=== PATIENT | male | born 1955 ===

== ENCOUNTER 2022-08-08 10:38 | Outpatient (CLI) | payer OTHER, SELFPAY ==
--- NOTE | 2022-08-08 11:30 | NEURO_ITS ---
Impression: # Complains of right hand weakness. 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 # No Carpal Tunnel Syndrome. # Abnormal needle/EMG exam in the muscles of ulnar nerve distribution. Motor Nerve Conduction Upper Extremities Median Nerve Conduction Velocity (m/sec) Terminal Latency (msec) Response Voltage(mV) Elbow-Wrist Wrist Elbow Wrist Right 50 2.7 4 6 Left 57 3.2 5 7 Ulnar Nerve Conduction Velocity (m/sec) Terminal Latency (msec) Response Voltage(mV) Above Elbow Below Elbow Wrist Above Elbow Below Elbow Wrist Right 25 52 3.0 2 3 3 Left 54 2.3 5 7 F-Wave Latency Median (ms) Ulnar (ms) Right 27.6 29.3 Left 28.3 29.8 Sensory Nerve Conduction Upper Extremities Median Nerve Stimulation Terminal Latency (msec) Wrist/Digit Response Voltage (uV) Wrist Right 2.8/2.7 50/23 Left 2.8/2.9 46/45 Ulnar Nerve Stimulation Terminal Latency (msec) Wrist/Digit Response Voltage (uV) Wrist Right NR NR Left 2.6 18 Radial Nerve Terminal Latency (msec) Response Voltage(mV) Right 2.9 5 Left 2.3 24 Left Right Muscles Examined Fibrillation Fasciculation Scarcity Voltage Duration Left Right Left Right Left Right Left Right Left Right Deltoid Biceps X X Brachioradialis Triceps X X Pronator Teres X X Ext Indicis X X Ext Digitorum X X Abd Poll Brev X X 1st Dorsal Interosseus Reduced Incr >12ms X X Abd Dig Min MTDD
== END 2022-08-08 10:39 | disposition home or self-care (01) ==
LOC: ANHNEURO 10:41
PROVIDERS: Visit Provider Internal Medicine Gastroenterology
DX: R20.2 Paresthesia of skin (principal); G56.21 Lesion of ulnar nerve, right upper limb
CPT/HCPCS: 95886; 95911